=== PATIENT | male | born 1950 | race African-American/Black ===

== ENCOUNTER 2025-06-25 17:41 | Emergency (ER) | payer MEDICARE, MEDICAID ==
[~2025-06-25] VITALS: Ht 188 cm; Wt 110.0 kg
[2025-06-25 17:44] VITALS: O2SAT 98
[2025-06-25] MEDS: HYDROCODONE/ACETAMINOPHEN 5/325MG TABLET PO ONE (18:38)
[2025-06-25 18:41] LABS: CLARITY URINE CLEAR (CLEAR); COLOR URINE YELLOW (YELLOW); GLUCOSE URINE NEGATIVE (NEGATIVE); KETONES URINE NEGATIVE (NEGATIVE); LEUKOCYTE ESTERASE URINE TRACE (NEGATIVE); NITRITE URINE NEGATIVE (NEGATIVE); OCCULT BLOOD URINE 1+ (NEGATIVE); PH URINE 6.5 (4.5-8.0); PROTEIN URINE 1+ (NEGATIVE); SPECIFIC GRAVITY URINE 1.010 (1.005-1.030); UROBILINOGEN URINE 1.0 E.U./dL (0.2-1.0)
[2025-06-25 18:53] LABS: BACTERIA URINE TRACE; SQUAMOUS EPITHELIAL CELL URINE FEW /lpf (RARE/1+); WBC URINE 0-2 /hpf (0-2)
[2025-06-25 18:54] LABS: BASOPHILS % 0.7 % (0.0-2.0); EOSINOPHILS % 3.5 % (0.0-5.0); HEMATOCRIT. 39.5 % (42.0-52.0); HEMOGLOBIN. 12.7 g/dL (14.0-18.0); LYMPHOCYTES % 26.6 % (20.0-50.0); MEAN PLATELET VOLUME 8.0 fl (7.4-10.4); MONOCYTES % 10.7 % (2.0-8.0); NEUTROPHILS % 58.5 % (40.0-76.0); PLATELET 200 x1000/uL (130-400); RED BLOOD CELL COUNT 4.28 mill/uL (4.7-6.1); RED CELL DISTRIBUTION WIDTH 14.3 % (11.6-14.6)
[2025-06-25 19:09] LABS: CREATININE 0.9 mg/dL (0.6-1.3); UREA NITROGEN BLOOD 10 mg/dL (9-23)
[2025-06-25 19:11] LABS: ASPARTATE AMINOTRANSFERASE 17 IU/L (<34); BILIRUBIN TOTAL 0.7 mg/dL (0.1-1.0); PROTEIN TOTAL 5.7 g/dL (6.0-8.3)
[2025-06-25] MEDS ORDERED: TAMS-54 MT (21:04)
[2025-06-25 22:53] VITALS: BP 125/80; PULSE 76; RESP 16; TEMP 37.1; O2SAT 99
== END 2025-06-25 23:35 | disposition home or self-care (01) ==
LOC: ER 17:52
DX: N40.1 Benign prostatic hyperplasia with lower urinary tract symptoms (principal); R33.8 Other retention of urine; M10.9 Gout, unspecified
CPT/HCPCS: 36415; 80053; 81003; 85025; 99284

== ENCOUNTER 2025-08-31 20:00 | Inpatient (IN) | payer OTHER, MEDICAID ==
[~2025-08-31] VITALS: Ht 185.4 cm; Wt 107.0 kg
[~2025-08-31 20:00] MED LIST: TAMS-54 MT
[2025-08-31 20:39] VITALS: O2SAT 99
[2025-08-31 21:35] LABS: PLATELET 220 x1000/uL (130-400); RED BLOOD CELL COUNT 4.61 mill/uL (4.7-6.1); RED CELL DISTRIBUTION WIDTH 13.9 % (11.6-14.6)
[2025-08-31 21:47] LABS: INR 1.1
[2025-08-31 21:52] LABS: CREATININE 1.0 mg/dL (0.6-1.3)
[2025-08-31 21:53] LABS: PROTEIN TOTAL 6.7 g/dL (6.0-8.3); UREA NITROGEN BLOOD 8 mg/dL (9-23)
[2025-08-31 21:54] LABS: ASPARTATE AMINOTRANSFERASE 19 IU/L (<34); TROPONIN I HIGH SENSITIVITY 39 ng/L (3.0-53)
[2025-08-31 21:55] LABS: BILIRUBIN DIRECT 0.4 mg/dL (<=3.0); BILIRUBIN TOTAL 1.3 mg/dL (0.1-1.0)
[2025-08-31 22:24] LABS: GLUCOSE URINE NEGATIVE (NEGATIVE); KETONES URINE NEGATIVE (NEGATIVE); LEUKOCYTE ESTERASE URINE NEGATIVE (NEGATIVE); NITRITE URINE NEGATIVE (NEGATIVE); OCCULT BLOOD URINE 1+ (NEGATIVE); PH URINE 6.5 (4.5-8.0); PROTEIN URINE 1+ (NEGATIVE); SPECIFIC GRAVITY URINE 1.010 (1.005-1.030); UROBILINOGEN URINE 0.2 E.U./dL (0.2-1.0)
[2025-08-31] MEDS: KETOROLAC 15MG/ML VIAL IV ONE (22:37)
[2025-08-31] MEDS: MORPHINE SULFATE 4 MG/ML INJ (FOR IV/IM USE) IV ONE (22:37)
[2025-08-31 22:58] LABS: COLOR URINE STRAW (YELLOW)
[2025-08-31 22:59] LABS: RBC URINE 0-2 /hpf (0-2)
[2025-08-31 23:00] LABS: BACTERIA URINE TRACE; CLARITY URINE SL HAZY (CLEAR); SQUAMOUS EPITHELIAL CELL URINE FEW /lpf (RARE/1+)
[2025-09-01] MEDS: MORPHINE SULFATE 4 MG/ML INJ (FOR IV/IM USE) IV ONE (00:19)
[2025-09-01] MEDS ORDERED: ONDANSETRON HCL 4MG/2ML INJ IV PRN (02:15)
[2025-09-01] MEDS ORDERED: PANTOPRAZOLE SODIUM 40 MG/VIAL IV SCH (02:15)
[2025-09-01] MEDS ORDERED: IPRATROPIUM/ALBUTEROL 0.5-3(2.5)MG/3ML NEB HHN PRN (02:15)
[2025-09-01] MEDS ORDERED: ACETAMINOPHEN 325MG TABLET PO PRN (02:15)
[2025-09-01] MEDS: KETOROLAC 15MG/ML VIAL IV PRN (03:34)
[2025-09-01] MEDS: CLONIDINE 0.1MG TABLET PO PRN (03:39)
[2025-09-01 04:00] VITALS: BP 162/90; PULSE 52; RESP 18; TEMP 36.6; O2SAT 97
[2025-09-01 04:03] VITALS: BP 168/90; PULSE 60; RESP 18; TEMP 36.5848
[2025-09-01] MEDS: TAMSULOSIN HCL 0.4MG SR CAPSULE PO SCH (04:11)
[2025-09-01] MEDS ORDERED: IOHEXOL-350 50 ML BOTTLE ONE (07:19)
[2025-09-01 08:00] VITALS: BP 134/66; PULSE 56; RESP 15; TEMP 36.4; O2SAT 96
[2025-09-01] MEDS: ACETAMINOPHEN 325MG TABLET PO PRN (10:58)
[2025-09-01] MEDS: PANTOPRAZOLE SODIUM 40 MG/VIAL IV SCH (11:59)
[2025-09-01 12:00] VITALS: BP 122/70; PULSE 56; RESP 22; TEMP 37; O2SAT 97
[2025-09-01 12:15] LABS: *AMPHETAMINES SCREEN URINE PRESUMPTIVE POSITIVE (NEGATIVE); *BARBITURATES SCREEN URINE NEGATIVE (NEGATIVE); *BENZODIAZEPINES SCREEN URINE NEGATIVE (NEGATIVE); *COCAINE SCREEN URINE NEGATIVE (NEGATIVE); METHADONE URINE SCREEN NEGATIVE (NEGATIVE)
[2025-09-01 12:16] LABS: CANNABINOID URINE SCREEN PRESUMPTIVE POSITIVE (NEGATIVE); ECSTASY MDMA SCREEN URINE NEGATIVE (NEGATIVE); OPIATES URINE SCREEN NEGATIVE (NEGATIVE); PHENCYCLIDINE URINE SCREEN NEGATIVE (NEGATIVE)
[2025-09-01 16:00] VITALS: BP 143/83; PULSE 64; RESP 20; TEMP 36.7; O2SAT 100
[2025-09-01] MEDS: MORPHINE SULFATE 4 MG/ML INJ (FOR IV/IM USE) IV SCH (17:23)
[2025-09-02] VITALS: BP 110/50; PULSE 67; RESP 18; TEMP 36.2; O2SAT 100
[2025-09-02 04:00] VITALS: BP 109/59; PULSE 68; RESP 19; TEMP 36.6; O2SAT 95
[2025-09-02 07:11] LABS: BASOPHILS % 0.5 % (0.0-2.0); EOSINOPHILS % 3.7 % (0.0-5.0); HEMATOCRIT. 42.6 % (42.0-52.0); HEMOGLOBIN. 14.0 g/dL (14.0-18.0); LYMPHOCYTES % 20.1 % (20.0-50.0); MEAN PLATELET VOLUME 8.6 fl (7.4-10.4); MONOCYTES % 8.8 % (2.0-8.0); NEUTROPHILS % 66.9 % (40.0-76.0); PLATELET 186 x1000/uL (130-400); RED BLOOD CELL COUNT 4.70 mill/uL (4.7-6.1); RED CELL DISTRIBUTION WIDTH 13.9 % (11.6-14.6)
[2025-09-02 07:20] LABS: T4 FREE 1.28 ng/dL (0.89-1.76)
[2025-09-02 07:23] LABS: CREATININE 1.3 mg/dL (0.6-1.3); UREA NITROGEN BLOOD 16 mg/dL (9-23)
[2025-09-02 08:00] VITALS: BP 97/56; PULSE 75; RESP 20; TEMP 36.7; O2SAT 100
[2025-09-02] MEDS: FINASTERIDE 5MG TABLET PO SCH (11:15)
[2025-09-02 12:00] VITALS: BP 132/74; PULSE 72; RESP 18; TEMP 36.4; O2SAT 98
[2025-09-02] MEDS ORDERED: TAMS-54 PO (14:01)
[2025-09-02] MEDS ORDERED: FINA5TAB11 PO (14:01)
[2025-09-02 16:00] VITALS: BP 140/80; PULSE 78; RESP 18; TEMP 36.8; O2SAT 98
[2025-09-02 20:00] VITALS: BP 146/88; PULSE 79; RESP 18; TEMP 36.4; O2SAT 93
[2025-09-03] VITALS: BP 126/64; PULSE 75; RESP 16; TEMP 36.3; O2SAT 99
[2025-09-03 04:00] VITALS: BP 120/62; PULSE 68; RESP 18; TEMP 36.7; O2SAT 98
[2025-09-03 08:00] VITALS: BP 148/90; PULSE 68; RESP 18; TEMP 36.4; O2SAT 96
[2025-09-03 12:00] VITALS: BP 135/65; PULSE 66; RESP 18; TEMP 36.6; O2SAT 98
[2025-09-03] MEDS: DOCUSATE SODIUM 250MG CAPSULE PO PRN (15:25)
[2025-09-03 16:00] VITALS: BP 137/72; PULSE 76; RESP 18; TEMP 36.6; O2SAT 98
[2025-09-03 20:00] VITALS: BP 110/76; PULSE 62; RESP 18; TEMP 36.4; O2SAT 98
[2025-09-04] VITALS: BP 124/78; PULSE 68; RESP 18; TEMP 36.4; O2SAT 97
[2025-09-04 04:00] VITALS: BP 132/78; PULSE 63; RESP 18; TEMP 36.3; O2SAT 100
[2025-09-04] MEDS ORDERED: TAMS-54 PO (07:18)
[2025-09-04] MEDS ORDERED: FINA5TAB11 PO (07:18)
[2025-09-04 08:00] VITALS: BP 123/86; PULSE 67; RESP 17; TEMP 36.2; O2SAT 98
[2025-09-04 12:00] VITALS: BP 152/77; PULSE 60; RESP 18; TEMP 37.3; O2SAT 95
[2025-09-04 15:41] VITALS: BP 152/77; PULSE 60; RESP 18; TEMP 99.1
== END 2025-09-04 16:05 | disposition home or self-care (01) | DRG 726 ==
LOC: ER 20:00 → 6WST 09-01 01:17 → EDBEDREQ 09-01 01:20 → EDBEDREQTM 09-01 01:20 → EDBEDREQDT 09-01 01:20 → 4WST 09-03 11:19
PROVIDERS: ADMIT Internal Medicine; ATTEND Internal Medicine
DX: N40.1 Benign prostatic hyperplasia with lower urinary tract symptoms (principal); N13.1 Hydronephrosis with ureteral stricture, not elsewhere classified; D64.9 Anemia, unspecified; N13.8 Other obstructive and reflux uropathy; Z59.01 Sheltered homelessness; K59.00 Constipation, unspecified; R31.9 Hematuria, unspecified; M10.9 Gout, unspecified; R03.0 Elevated blood-pressure reading, without diagnosis of hypertension; R33.8 Other retention of urine; Z79.899 Other long term (current) drug therapy
CPT/HCPCS: 36415; 74174; 76770; 80048; 80076; 80305; 81003; 82962; 84439; 84443; 84484; 85025; 85027; 86850; 86900; 93005; 93970; 99285; G0378; J1885; J2270; J2470; Q9967